=== PATIENT | female | born 1935 | race Caucasian/White ===

== ENCOUNTER 2016-07-06 18:47 | Emergency (ER) | payer OTHER ==
[~2016-07-06] VITALS: Ht 160 cm; Wt 55.0 kg
[2016-07-06 19:03] VITALS: Ht 160 cm; Wt 55.0 kg
[2016-07-06] MEDS ORDERED: ASPIRIN 81 MG TAB PO STA (21:07)
[2016-07-06] MEDS ORDERED: NITROGLYCERIN 2% 1 GM OINT PKT TD STA (21:07)
[2016-07-06] MEDS ORDERED: AMIO200T2 PO (21:29)
[2016-07-06] MEDS ORDERED: ALEN70TA30 PO (21:30)
[2016-07-06] MEDS ORDERED: LOSA1TAB20 PO (21:30)
[2016-07-06] MEDS ORDERED: NITROGLYCERIN (SL) 0.4 MG TAB SL PRN (21:30)
[2016-07-06] MEDS ORDERED: AMLO-147 PO (21:30)
[2016-07-06] MEDS ORDERED: LEVO100T87 PO (21:31)
[2016-07-06 21:49] LABS: HEMOGLOBIN 8.9 g/dl (12.0-16.0); MEAN CORPUSCULAR HEMOGLOBIN 20.3 pg (29.0-33.0); MEAN CORPUSCULAR HGB CONC 31.7 g/dl (32.0-37.0); MEAN CORPUSCULAR VOLUME 63.8 fl (82.0-101.0); MEAN PLATELET VOLUME 9.1 fl (7.4-10.4); PLATELET COUNT 223 10^3/UL (140-440); RED BLOOD COUNT 4.39 10^6/ul (4.20-5.40); RED CELL DISTRIBUTION WIDTH 14.4 % (11.5-14.5); UNCORRECTED WBC 9.3 10^3/ul (4.8-10.8); WHITE BLOOD COUNT 9.3 10^3/ul (4.8-10.8)
[2016-07-06 21:53] LABS: CHLORIDE 95 mmol/L (97-110); CONDITION 1; LH ANALYZER COMMENTS 1; SODIUM 138 mmol/L (135-144)
[2016-07-06 21:54] LABS: INR 1.03; PROTIME 13.5 Sec (12.2-14.2); PT RATIO 1.1
[2016-07-06 21:55] LABS: PARTIAL THROMBOPLASTIN TIME 26.5 Sec (25.0-35.0)
[2016-07-06 21:56] LABS: ANION GAP 14 (8-16); BLOOD UREA NITROGEN 22 mg/dl (7-20); CARBON DIOXIDE 33 mmol/L (21-31); CREATININE 0.97 mg/dl (0.44-1.00)
[2016-07-06 21:57] LABS: CALCIUM 9.4 mg/dl (8.4-10.2); GLUCOSE 84 mg/dl (70-220)
--- NOTE | 2016-07-06 22:06 | RADRPT ---
PROCEDURE: XR Chest. CLINICAL INDICATION: Chest pain. TECHNIQUE: Single frontal chest x-ray. COMPARISON: None available. FINDINGS: The cardiomediastinal silhouette is unremarkable. Aortic atherosclerotic vascular calcifications are identified. No pneumothorax, pleural effusion or consolidation is seen. No acute osseous abnormality is noted. IMPRESSION: 1. No acute cardiopulmonary abnormality. 2. Aortic atherosclerosis. RPTAT: QQ .Kamille Chino MD, MD Date Time Electronically viewed and signed by .Kamille Chino MD, on 07/06/2016 22:06 .N/
[2016-07-06 22:08] LABS: TROPONIN-I < 0.012 ng/ml (0.00-0.12)
--- NOTE | 2016-07-06 22:22 | ERD ---
ER Documentation Chief Complaint Date/Time DATE: 07/06/16 TIME: 22:22 Chief Complaint INT. HEART PALPITATIONS X 2 DAYS HPI Patient is an 81-year-old female with hypertension who presents with palpitations. She said that the symptoms started this morning. She feels palpitations in her heart. She started a new medicine today and initially she did not know what it was but eventually found out it was amiodarone that was started by the emergency department at [facility]. She has had nausea and dizziness since. She has not called her primary doctor as of yet. Upon review of old medical records this is the patient's first visit to the ER. ROS All systems reviewed and are negative except as per history of present illness. Medications Home Meds Reported Medications Levothyroxine Sodium* (Levothyroxine Sodium*) 100 Mcg Tablet, 100 MCG PO BEFORE BREAKFAST, #30 TAB 07/06/16 Amlodipine Besylate* (Amlodipine Besylate*) 10 Mg Tablet, 10 MG PO DAILY, #30 TAB 07/06/16 Losartan-Hydrochlorothiazide (Losartan-HCTZ) 100-25 Mg Tab, 1 TAB PO DAILY, TAB 07/06/16 Alendronate Sodium* (Fosamax*) 70 Mg Tablet, 70 MG PO Q7D, #4 TAB 07/06/16 Amiodarone Hcl* (Amiodarone Hcl*) 200 Mg Tablet, 100 MG PO DAILY, #30 TAB 07/06/16 Allergies Allergies: Coded Allergies: No Known Allergy (Unverified , 07/06/16) PMhx/Soc Medical and Surgical Hx: pt denies Surgical Hx Anesthesia Reaction: No Hx Neurological Disorder: No Hx Respiratory Disorders: No Hx Cardiac Disorders: Yes (HTN, ARRTHYMIA) Hx Psychiatric Problems: No Hx Miscellaneous Medical Probl: No Hx Alcohol Use: No Hx Substance Use: No Hx Tobacco Use: No Smoking Status: Never smoker FmHx Family History: No coronary disease Physical Exam Vitals Vital Signs Date Time Temp Pulse Resp B/P Pulse Ox O2 Delivery O2 Flow Rate FiO2 07/06/16 19:03 97.3 92 18 129/60 97 Physical Exam Const: [] Head: Atraumatic Eyes: Normal Conjunctiva ENT: Normal External Ears, Nose and Mouth. Neck: Full range of motion..~ No meningismus. Resp: Clear to auscultation bilaterally Cardio: Regular rate and rhythm, no murmurs Abd: Soft, non tender, non distended. Normal bowel sounds Skin: No petechiae or rashes Back: No midline or flank tenderness Ext: No cyanosis, or edema Neur: Awake and alert Psych: Normal Mood and Affect Result Diagram: 07/06/16210507/06/162105 Results 24 hrs Laboratory Tests Test 07/06/16 21:06 Activated Partial Thromboplast Time 26.5Sec Anion Gap 14 Blood Morphology Comment Blood Urea Nitrogen 22mg/dl Calcium Level 9.4mg/dl Carbon Dioxide Level 33mmol/L Chloride Level 95mmol/L Creatinine 0.97mg/dl Glucose Level 84mg/dl Hematocrit 28.0% Hemoglobin 8.9g/dl INR International Normalized Ratio 1.03 Mean Corpuscular Hemoglobin 20.3pg Mean Corpuscular Hemoglobin Concent 31.7g/dl Mean Corpuscular Volume 63.8fl Mean Platelet Volume 9.1fl Platelet Count 77933^3/UL Potassium Level 4.0mmol/L Prothrombin Time 13.5Sec Prothrombin Time Ratio 1.1 Red Blood Count 4.3910^6/ul Red Cell Distribution Width 14.4% Sodium Level 138mmol/L Troponin I < 0.012ng/ml White Blood Count 9.310^3/ul Current Medications Medications (Trade) Dose Ordered Sig/Ewelina Route PRN Reason Start Time Stop Time Status Last Admin Dose Admin Aspirin (Aspirin) 162 mg ONCE STAT PO 07/06/16 21:07 07/06/16 21:16 DC Nitroglycerin (Nitroglycerin 2% Oint) 1 inch ONCE STAT TD 07/06/16 21:07 07/06/16 21:17 DC Nitroglycerin (Nitroglycerin (Sl Tab) 0.4 Mg) 1 tab Q5M UP TO 3 DOSES PRN SL CHEST PAIN 07/06/16 21:30 07/06/16 21:30 DC Procedures/MDM EKG read by me: Rate/Rhythm: Regular rate and rhythm at a rate of 73 Intervals: Normal Impression: No evidence of ischemia or arrhythmia Chest x-ray negative per radiology. Patient is a 81-year-old female with hypertension who presents with palpitations. This started after starting amiodarone. Her EKG is normal. Laboratory studies are normal. Chest x-ray is negative. At this point I doubt acute coronary syndrome, pneumonia, pneumothorax, pulmonary embolism, or aortic dissection. I believe outpatient management is appropriate. The patient will need to follow-up closely with her primary doctor. The patient has anemia but does not require transfusion. Departure Diagnosis: Primary Impression: Palpitations Additional Impression: Anemia Anemia type: unspecified type Qualified Code: D64.9 - Anemia, unspecified type Condition: Fair Patient Instructions: Palpitations Referrals: DEDE IBRAHIM (PCP) Additional Instructions: Llame al doctor MAANA y yesica johan DERRICK PARA DENTRO DE 1-2 STOVALL.Dgale a la secretaria que nosotros le instruimos hacer esta derrick.Avise o llame si smith condicin se empeora antes de la derrick. Regresa aqui si peor o no mejor. RIMA FORRESTER MD Jul 06, 2016 22:22
[2016-07-06 22:30] LABS: EOSINOPHILS # 0.2 10^3/ul (0.0-0.5); LYMPHOCYTES # 2.4 10^3/ul (0.8-2.9); MONOCYTE # 0.7 10^3/ul (0.3-0.9); NEUTROPHIL # 5.8 10^3/ul (1.6-7.5)
[2016-07-06 22:31] LABS: PLATELET ESTIMATE PLT APPEAR ADEQUATE
[2016-07-07 00:25] VITALS: BP 139/60; PULSE 68; RESP 18; TEMP 98.3
== END 2016-07-07 00:26 | disposition home or self-care (01) ==
LOC: E/R 18:47
DX: R00.2 Palpitations (principal); D64.9 Anemia, unspecified; I10 Essential (primary) hypertension; R07.9 Chest pain, unspecified
CPT/HCPCS: 71010; 80048; 84484; 85025; 85610; 85730; 93005

== ENCOUNTER 2017-11-21 20:42 | Inpatient (IN) | END 2017-11-24 20:14 | disposition home health service (06) | DRG 440 ==

== ENCOUNTER 2017-12-01 13:44 | Emergency (ER) | END 2017-12-01 18:09 | disposition home or self-care (01) ==

== ENCOUNTER 2017-12-10 17:26 | Inpatient (IN) | END 2017-12-17 17:18 | disposition home health service (06) | DRG 417 ==

== ENCOUNTER 2017-12-30 11:57 | Emergency (ER) | END 2017-12-30 14:54 | disposition home or self-care (01) ==